=== PATIENT | male | born 1960 | race Caucasian/White ===

== ENCOUNTER → 2020-03-18 14:26 | Outpatient (CLI) | payer OTHER, SELFPAY ==
--- NOTE | 2020-03-18 14:35 | DI.RAD.S_ITS ---
PROCEDURE: XR KNEE RT 3V INDICATIONS: left knee pain TECHNIQUE: 3 views of the knee were acquired. COMPARISON: None. FINDINGS: Bones: No fractures or dislocations. No suspicious bony lesions. Mild degenerative change. Soft tissues: No joint effusion. No suspicious soft tissue calcifications. IMPRESSION: Mild degenerative change. No evidence acute bony abnormality of the left knee. If clinical suspicion and/or symptoms persist, further assessment with repeat plain films, or advanced imaging (e.g., CT, MRI, or bone scan) may be helpful for further assessment. Dictated by: Valdez Askew M.D. on 03/18/2020 at 15:15 Approved by: Valdez Askew M.D. on 03/18/2020 at 15:15
== END ==
PROVIDERS: Referring Provider Student in an Organized Health Care Education/Training Program; Visit Provider Student in an Organized Health Care Education/Training Program
DX: M25.562 Pain in left knee (principal)
CPT/HCPCS: 73562

== ENCOUNTER → 2020-03-31 08:41 | Outpatient (CLI) | payer OTHER, SELFPAY ==
--- NOTE | 2020-03-31 08:43 | DI.MRI.S_ITS ---
PROCEDURE: MR KNEE LT WO CON INDICATIONS: Pain in left knee, hiking injury TECHNIQUE: Noncontrast sagittal PD fast spin echo and T2 fast spin echo with fat saturation, sagittal 3-D FLASH with fat saturation; coronal T1 spin echo and PD fast spin echo with fat saturation, and axial PD fast spin echo with fat saturation through the knee. COMPARISON: [facility] [place], CR, XR KNEE ARTHRITIC SERIES RT, 09/04/2018, 10:19. FINDINGS: Image quality: Excellent. Menisci: Truncation of the free edge of the medial meniscal body and posterior horn. Linear oblique high T2 signal intensity traverses the posterior horn medial meniscus, demonstrating inferior articular surface extension. Truncation of the free edge of the anterior horn medial meniscus. Lateral meniscus is intact. Cruciate ligaments: The anterior and posterior cruciate ligaments appear intact. Medial structures: The medial collateral ligament appears intact. Small amount of fluid deep to the medial collateral ligament. Visualized portions of the pes anserinus tendons appear normal. No abnormal bursal fluid. Lateral structures: The lateral collateral ligament, long and short heads of the biceps femoris tendon appear intact. The popliteus tendon appears normal. Iliotibial band appears normal. Anterior structures: The quadriceps and patellar tendons appear intact. Patellar alignment is normal. No femoral trochlear dysplasia or ventral trochlear prominence. No edema in the infrapatellar fat pad. Bones and cartilage: No bone marrow contusions or fractures. Minimal subchondral degenerative marrow edema within the posterior weight-bearing and nonweightbearing aspect of the medial femoral condyle. Mild tricompartmental periarticular osteophyte formation. Moderate articular cartilage loss diffusely overlies the weight-bearing aspects of the medial femoral condyle. Severe articular cartilage loss diffusely overlies the weight-bearing aspects of the medial tibial plateau. There is superimposed severe articular cartilage loss overlying the posterior weight-bearing and nonweightbearing aspect of the medial femoral condyle. Mild articular cartilage loss diffusely overlies the weight-bearing aspects of the lateral femoral condyle and lateral tibial plateau. Articular cartilage fibrillation overlies the patellar apex and lateral patellar facet. Joint space: There is physiologic knee joint fluid. Trace Cam's cyst. Normal appearing synovial plicae are incidentally noted. IMPRESSION: 1. Tricompartmental osteoarthritis with associated articular cartilage loss. 2. Medial meniscal tearing. 3. Trace Cam's cyst. 4. Medial collateral ligament bursitis. Dictated by: Catie Em M.D. on 03/31/2020 at 9:36 Approved by: Catie Em M.D. on 03/31/2020 at 9:39
== END ==
PROVIDERS: PCP Student in an Organized Health Care Education/Training Program; Referring Provider Student in an Organized Health Care Education/Training Program; Visit Provider Student in an Organized Health Care Education/Training Program
DX: M25.562 Pain in left knee (principal); M17.12 Unilateral primary osteoarthritis, left knee; S83.242A Other tear of medial meniscus, current injury, left knee, initial encounter; M70.52 Other bursitis of knee, left knee
CPT/HCPCS: 73721

== ENCOUNTER → 2020-05-12 08:19 | Outpatient (CLI) | payer OTHER, SELFPAY ==
[2020-05-12] MEDS: COVID-19 VACC #1, MRNA(MOD) 100 MCG/0.5 ML VIAL IM (08:29)
== END ==
PROVIDERS: PCP Student in an Organized Health Care Education/Training Program; Visit Provider Internal Medicine
DX: Z23 Encounter for immunization (principal)
CPT/HCPCS: 0011A; 91301

== ENCOUNTER → 2020-06-09 08:17 | Outpatient (CLI) | payer OTHER, SELFPAY ==
[2020-06-09] MEDS: COVID-19 VACC #2, MRNA(MOD) 100 MCG/0.5 ML VIAL IM (08:23)
== END ==
PROVIDERS: PCP Student in an Organized Health Care Education/Training Program; Visit Provider Internal Medicine
DX: Z23 Encounter for immunization (principal)
CPT/HCPCS: 0012A; 91301

== ENCOUNTER → 2021-03-23 10:09 | Outpatient (CLI) | payer OTHER, SELFPAY ==
[2021-03-23 13:40] LABS: COVID19 -Nasal RAPID Negative (Negative)
== END ==
PROVIDERS: PCP Student in an Organized Health Care Education/Training Program; Visit Provider Family Medicine Sleep Medicine
DX: Z20.822 Contact with and (suspected) exposure to COVID-19 (principal)
CPT/HCPCS: 87635; C9803

== ENCOUNTER 2021-03-25 12:37 | Day surgery (SDC) | payer OTHER, SELFPAY ==
[2021-03-25] VITALS (7 sets, daily range): BP systolic 85–158; BP diastolic 39–98; PULSE 74–97; RESP 14–16; TEMP 36.2–37.2; O2SAT 96–99
--- NOTE | 2021-03-25 | PATH_ITS ---
[facility] Accession Number: [id number] . 01 Material submitted: . colon - SIGMOID POLYP, 8MM X2 . 02 Diagnosis: Sigmoid Polyp, 8 mm x2: Portions of tubular adenoma x4. Superficial portion of colorectal mucosa x1 with no significant histomorphologic abnormality. MRV 03/29/2021 0937 Local . 02 Electronically signed: . Michelle Narayan MD, Pathologist NPI- [id number] . 01 Gross description: . SIGMOID POLYP, 8MM X2: Received in formalin are multiple fragment(s) of jean baptiste, soft tissue measuring 0.9 x 0.3 x 0.2 cm in aggregate submitted entirely in 1 cassette(s) /TRC 03/28/2021 1300 Local . 02 Pathologist provided ICD-10: K63.5 . 02 CPT . 290352 Specimen Comment: A courtesy copy of this report has been sent to [phone] Performed at: 01 [facility] [address] [facility], [place], [place] [id number] MD Deondre Concepcion MD Phone: [phone] Performed at: 02 [facility] [address] [place], [place] [id number] MD Sushila Landa MD Phone: [phone]
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
--- NOTE | 2021-03-25 12:05 | PM.OP.COLON ---
Operative Date/Time/Diagnoses Date of procedure: 03/25/21 Procedure Notes SCOAP/Timeout: 1:53 p.m. Procedure in detail: ENDOSCOPIST: Bertha Smith MD Anesthesiologist: Romeo Mercado MD Sedation RN: Tanisha Byrd RN Sedation start time: 1:55 p.m. Sedation end time: 2:45 p.m. PROCEDURE: Colonoscopy with biopsy INDICATIONS: 1. History of colon polyps 2. Screening for colon cancer 3. Family history of colon polyps 4. Family history of colon cancer MEDICATION: Levsin 0.125 mg sublingual, 11 mg of Versed and 350 mg of fentanyl was unable to produce adequate sedation. Anesthesia was then called and Dr. Mercado kindly stepped into the case and provided the remainder of the anesthesia during procedure. He used an additional 150 mg of fentanyl and 350 mg of propofol to achieve adequate sedation. ASA CLASS: 2 CECAL WITHDRAWAL TIME: 15 minutes COMPLICATIONS: None. EXTENT OF PROCEDURE: Cecum. QUALITY OF PREP: Good with portions of liquid stool. PROCEDURE: Prior to insertion of the colonoscope, a digital rectal examination was accomplished with circumferential palpation of the distal rectal mucosa without significant findings being noted. The high-definition colonoscope was passed into the rectum in the usual fashion and advanced over to the cecum without difficulty. The ileocecal valve, appendiceal stoma, and medial wall all could be inspected and no abnormalities were seen. ASCENDING COLON: As the colonoscope was withdrawn, care was taken to expose and inspect the haustral folds and no abnormalities were seen. HEPATIC FLEXURE: Normal, no polyps, diverticula or other abnormalities. TRANSVERSE COLON: Normal, no polyps, diverticula or other abnormalities. DESCENDING COLON: Normal, no polyps, diverticula or other abnormalities. SIGMOID COLON: Polyps x2, 8 mm, removed with cold biopsy forceps, excellent hemostasis. Otherwise, mild diverticulosis. RECTUM: Normal. J maneuver was produced. There was no significant perianal disease. The J maneuver was broken. The remainder of the rectum was inspected and there was no external hemorrhoid disease. The scope was withdrawn. IMPRESSION: 1. Sigmoid polyp x2, 8 mm, removed with cold biopsy forceps 2. Sigmoid diverticulosis, mild PLAN: 1. Follow-up in clinic status post pathology results. The possibility of a missed lesion including a malignancy has been discussed with the patient previously. Potential alarm symptoms have been discussed and should be reported immediately.
[2021-03-25] MEDS: HYOSCYAMINE 0.125 MG TABLET PO (13:23)
[2021-03-25] MEDS: MIDAZOLAM 5 MG/5 ML VIAL IV (14:21)
[2021-03-25] MEDS: fentaNYL 250 MCG/5 ML INJ IV (14:22)
== END 2021-03-25 16:00 | disposition home or self-care (01) ==
PROVIDERS: PCP Student in an Organized Health Care Education/Training Program; Referring Provider Student in an Organized Health Care Education/Training Program; Visit Provider Student in an Organized Health Care Education/Training Program
PROC: 0DJD8ZZ Inspection of Lower Intestinal Tract, Via Natural or Artificial Opening Endoscopic (ICD-10-PCS; CPT 45378; principal; 2021-03-25 13:45)
DX: Z12.11 Encounter for screening for malignant neoplasm of colon (principal); Z86.010 Personal history of colon polyps; Z80.0 Family history of malignant neoplasm of digestive organs; E78.5 Hyperlipidemia, unspecified; K57.30 Diverticulosis of large intestine without perforation or abscess without bleeding; D12.5 Benign neoplasm of sigmoid colon
CPT/HCPCS: 45380; J2250; J3010

== ENCOUNTER → 2022-01-09 08:39 | Outpatient (CLI) | payer OTHER, SELFPAY ==
[2022-01-09 09:23] LABS: Add Manual Diff / Slide Review NO; Basophils Absolute Auto 0 /uL (0-100); Basophils Percent Auto 0.6 % (0-2); Eosinophils Absolute Auto 100 /uL (0-450); Eosinophils Percent Auto 1.7 % (2-4); Hematocrit 43.7 % (41-53); Hemoglobin 15.4 g/dL (13.5-17.5); Lymphocytes Absolute Auto 1300 /uL (1100-4500); Lymphocytes Percent Auto 25.9 % (25-40); Mean Corpuscular HGB Conc 35.2 % (30-36); Mean Corpuscular Hemoglobin 33.5 PG (26-34); Mean Corpuscular Volume 95.3 fL (80-100); Monocytes Absolute Auto 400 /uL (0-900); Monocytes Percent Auto 7.9 % (3-14); Neutrophils Absolute Auto 3300 /uL (1500-7000); Neutrophils Percent Auto 63.9 % (50-75); Platelet Count 175 X10^3/uL (150-400); Red Blood Cell Count 4.59 X10^6/uL (4.5-5.9); Red Cell Distribution Width 13.2 % (11.6-14.8); White Blood Cell Count 5.2 X10^3/uL (4.5-11.0)
[2022-01-10 16:39] LABS: Alanine Aminotransferase 36 IU/L (<50); Albumin 4.4 g/dL (3.5-5.0); Albumin Globulin Ratio 1.7 (1.0-2.8); Alkaline Phosphatase 44 U/L (38-126); Aspartate Aminotransferase 29 IU/L (17-59); BUN Creatinine Ratio 25.5 (6-22); Bilirubin Total 0.7 mg/dL (0.2-1.3); Blood Urea Nitrogen 27 mg/dL (9-20); Calcium 9.6 mg/dL (8.4-10.2); Carbon Dioxide 27 mmol/L (22-32); Chloride 102 mmol/L (98-107); Cholesterol 207 mg/dL (140-199); Estimated Glomerular Filt Rate > 60 mL/min (>60); Globulin 2.6 g/dL (1.7-4.1); Glucose 115 mg/dL (80-110); HDL Cholesterol 66 mg/dL (40-60); HEMOLYSIS < 15 (0-50); LDL Cholesterol Calculated 129 mg/dL (<100); Potassium 4.4 mmol/L (3.4-5.1); Sodium 138 mmol/L (137-145); Triglycerides 59 mg/dL (35-150); VLDL Cholesterol Calculated 12 mg/dL (2-30)
[2022-01-10 17:00] LABS: Hemoglobin A1C% w Est Avg Glu 5.2 % (4.0-6.0)
[2022-01-10 17:26] LABS: Prostate Specific Antigen Scrn 4.37 ng/mL (0.1-4.0)
[2022-01-10 17:56] LABS: TSH w/ Reflex to FT4 2.59 uIU/mL (0.47-4.68)
== END ==
PROVIDERS: PCP Student in an Organized Health Care Education/Training Program; Referring Provider Family Medicine; Visit Provider Family Medicine
DX: Z00.00 Encounter for general adult medical examination without abnormal findings (principal); E78.5 Hyperlipidemia, unspecified; Z12.5 Encounter for screening for malignant neoplasm of prostate
CPT/HCPCS: 36415; 80053; 80061; 83036; 84443; 85025; G0103

== ENCOUNTER → 2022-11-01 07:37 | Outpatient (CLI) | payer OTHER, SELFPAY ==
--- NOTE | 2022-11-01 | DI.MRI.S_ITS ---
PROCEDURE: MR SHOULDER RT WO CON INDICATIONS: RIGHT SHOULDER PAIN TECHNIQUE: Noncontrast oblique coronal T2 fast spin echo with fat saturation, oblique sagittal T1 spin echo and T2 fast spin echo with fat saturation, axial T1 spin echo and T2 fast spin echo with fat saturation through the shoulder. COMPARISON: [facility] [place], CR, XR SHOULDER 2+ VIEWS RIGHT, 10/10/2022, 12:11. FINDINGS: Image quality: Excellent. Rotator cuff: There is full-thickness tear of the supraspinatus tendon with tendon retraction to the musculotendinous junction. Mild supraspinatus muscle atrophy is present. There is severe infraspinatus tendinosis without high-grade partial-thickness tendon tear. No tendon retraction or infraspinatus muscle atrophy. There is moderate subscapularis tendinosis. There is interstitial tear of the subscapularis tendon. No tendon retraction or subscapularis muscle atrophy. The teres minor tendon appears intact. Bones and bursae: Postsurgical changes in clavicle for internal fixation of old clavicular shaft fracture. Metallic artifact partially obscure adjacent structures. Moderate acromioclavicular and glenohumeral joint degeneration. The acromion demonstrates conventional anatomy, without an os acromiale. Small glenohumeral joint effusion. Capsule and soft tissues: There is degenerative labral tear of the superior, superior anterior and superior posterior labrum. There is moderate tendinosis of the long head of the biceps tendon with partial-thickness tear. The rotator interval appears normal, without fibrosis. The coracohumeral ligament is normal in thickness. IMPRESSION: 1. Full-thickness tear of the supraspinatus tendon with tendon retraction and mild muscle atrophy. 2. High-grade partial-thickness tear of the infraspinatus tendon. No tendon retraction or muscle atrophy. 3. Moderate subscapularis tendon without high-grade tear. No tendon retraction or muscle atrophy. 4. Moderate tendinosis and partial tear of the long head of the biceps tendon. 5. Moderate acromioclavicular and glenohumeral joint arthrosis. 6. Degenerative labral tear. 7. Small glenohumeral joint effusion. 8. Metallic artifacts from prior ORIF of old clavicular shaft fracture. Dictated by: Beatris De Souza M.D. on 11/01/2022 at 9:41 Approved by: Beatris De Souza M.D. on 11/01/2022 at 9:57
== END ==
PROVIDERS: PCP Registered Nurse; Referring Provider Orthopaedic Surgery; Visit Provider Orthopaedic Surgery
DX: S46.111A Strain of muscle, fascia and tendon of long head of biceps, right arm, initial encounter (principal); S46.011A Strain of muscle(s) and tendon(s) of the rotator cuff of right shoulder, initial encounter; M19.011 Primary osteoarthritis, right shoulder; S43.491A Other sprain of right shoulder joint, initial encounter; M25.411 Effusion, right shoulder; X58.XXXA Exposure to other specified factors, initial encounter; Z87.81 Personal history of (healed) traumatic fracture
CPT/HCPCS: 73221

== ENCOUNTER → 2024-04-25 09:38 | Outpatient (CLI) | payer OTHER, SELFPAY ==
[2024-04-25 11:00] LABS: Alanine Aminotransferase 37 IU/L (<50); Albumin 4.8 g/dL (3.5-5.0); Alkaline Phosphatase 45 U/L (38-126); Aspartate Aminotransferase 38 IU/L (17-59); BUN Creatinine Ratio 19.7 (6-22); Blood Urea Nitrogen 24 mg/dL (9-20); Carbon Dioxide 26 mmol/L (22-32); Chloride 100 mmol/L (98-107); Cholesterol 228 mg/dL (140-199); Estimated Glomerular Filt Rate > 60 mL/min (>60); Globulin 2.4 g/dL (1.7-4.1); Glucose 104 mg/dL (80-110); HDL Cholesterol 70 mg/dL (40-60); HEMOLYSIS < 15 (0-50); LDL Cholesterol Calculated 144 mg/dL (<100); Potassium 4.5 mmol/L (3.4-5.1); Sodium 136 mmol/L (137-145); Total Protein 7.2 g/dL (6.3-8.2); Triglycerides 71 mg/dL (35-150)
[2024-04-25 11:31] LABS: Prostate Specific Antigen Scrn 5.32 ng/mL (0.1-4.0); TSH w/ Reflex to FT4 1.49 uIU/mL (0.47-4.68)
== END ==
PROVIDERS: PCP Family Medicine; Referring Provider Family Medicine; Visit Provider Family Medicine
DX: Z00.00 Encounter for general adult medical examination without abnormal findings (principal); R97.20 Elevated prostate specific antigen [PSA]; I10 Essential (primary) hypertension; E78.5 Hyperlipidemia, unspecified; Z12.5 Encounter for screening for malignant neoplasm of prostate
CPT/HCPCS: 36415; 80053; 80061; 84443; G0103

== ENCOUNTER → 2024-08-18 13:49 | Outpatient (CLI) | payer OTHER, SELFPAY ==
[2024-08-20 06:36] LABS: PSA, Total 5.9 ng/mL (0.0-4.0)
== END ==
PROVIDERS: PCP Family Medicine; Referring Provider Urology; Visit Provider Urology
DX: R97.20 Elevated prostate specific antigen [PSA] (principal)
CPT/HCPCS: 36415; 84153; 84154

== ENCOUNTER → 2024-12-04 15:57 | Outpatient (CLI) | payer OTHER, SELFPAY ==
--- NOTE | 2024-12-04 15:59 | DI.MRI.S_ITS ---
PROCEDURE: MR PELVIC PROSTATE PROTOCOL INDICATIONS: 64 y/o M w/ an elevated PSA, please eval TECHNIQUE: Coronal HASTE, axial T1 FSE with fat saturation, 3-plane nonbreath-hold T2 FSE. After the administration of contrast, dynamic axial, delayed axial and coronal VIBE or 2-D FLASH with fat saturation through the pelvis. Diffusion weighted imaging and ADC was performed. COMPARISON: None. FINDINGS: Image quality: Diffusion weighted and dynamic contrast enhanced images are diagnostic. Prostate: Gland size is 6.8 x 5 x 6.3 cm; ellipsoid gland volume is 111 mL. Estimated PSA density is low at 0.0531 Transitional zone heterogenous nodules are present, either well encapsulated or mostly encapsulated, compatible with PI-RADS 1 or 2 likely BPH nodules. At the left apex midline peripheral zone, there is a 0.9 cm lesion with mild diffusion restriction (24/19). T2 score 3. DWI score 3. DCE positive. PI-RADS 4. Genitourinary system: Trabeculated urinary bladder usually due to chronic obstruction. Bowel and peritoneum: No bowel obstruction. No drainable ascites Nodes and vessels: No aneurysmal artery identified. No enlarged lymph nodes by size criteria in the pelvis Soft tissues: No significant pelvic wall abnormality Bones: Left hip arthroplasty. There is surrounding metallic artifact, limiting evaluation is region. No aggressive appearing osseous finding. IMPRESSION: Background significant prostatomegaly and BPH throughout the transitional zone. A lesion is seen in the left paramidline apex peripheral zone. This is PI-RADS 4 by imaging criteria, with early contrast enhancement and mild diffusion restriction. However, size is small, under 1 cm. A differential consideration also includes focal prostatitis. No extracapsular disease or seminal vesicle involvement. No pelvic lymphadenopathy by size criteria. No aggressive osseous abnormality. Dictated by: Gregory Reynoso M.D. on 12/05/2024 at 8:44 Approved by: Gregory Reynoso M.D. on 12/05/2024 at 8:52
== END ==
PROVIDERS: PCP Family Medicine; Referring Provider Urology; Visit Provider Urology
DX: N40.1 Benign prostatic hyperplasia with lower urinary tract symptoms (principal); N42.9 Disorder of prostate, unspecified; R97.20 Elevated prostate specific antigen [PSA]; N32.89 Other specified disorders of bladder
CPT/HCPCS: 72197; A9579